=== PATIENT | male | born 1990 | race Caucasian/White ===

== ENCOUNTER 2019-04-29 06:11 | Inpatient (IN) | payer OTHER ==
[~2019-04-29] VITALS: Ht 177.8 cm; Wt 66.2 kg
[2019-04-29] VITALS (17 sets, daily range): BP systolic 107–147; BP diastolic 61–101
[~2019-04-29 06:11] MED LIST: AZITHROMYCIN 2250 MG PO; BACTRIM DS TAB1 EACH PO; CLEOCIN HCL150 MG PO; CLINDAMYCIN HC150 MG PO; FIORICET 50-321 EACH PO; HYDROCODONE-AP1 EAC6 PO; NAPROSYN250 MG PO; NOHOMEMEDICATIONS; NORCO 5-325 TA1 EACH PO; PROMETHAZINE-D120 ML PO; ULTRAM 50MG TAB50 MG PO; ZOFRAN4 MG PO
[2019-04-29] MEDS ORDERED: NOVOLIN R100 UNIT/3 SUBQ (06:21)
[2019-04-29 06:30] LABS: URINE BILIRUBIN NEGATIVE (Negative); URINE BLOOD TRACE (Negative); URINE CLARITY CLEAR; URINE COLOR YELLOW; URINE GLUCOSE-RANDOM 2+ (Negative); URINE KETONES 3+ (Negative); URINE LEUKOCYTES-REFLEX NEGATIVE (Negative); URINE NITRITE-REFLEX NEGATIVE (Negative); URINE PROTEIN TRACE (Negative); URINE SPECIFIC GRAVITY 1.025 (1.005-1.030); URINE UROBILINOGEN 0.2 E.U./dl (0.2-1.0)
[2019-04-29 06:41] LABS: HEMATOCRIT 45.9 % (42.0-52.0); HEMOGLOBIN 13.6 gm/dL (14.0-18.0); MCH 22.9 pg (26.0-34.0); MCHC 29.7 g/dL (28.0-37.0); MPV 8.6 fl. (7.2-11.1); NUCLEATED RBCS 0 /100WBC; PLATELET COUNT* 527 thou/uL (150-400); RBC 5.95 mil/uL (4.50-6.00); RDW-CV 19.8 % (10.5-14.5); WBC 31.2 thou/uL (4.0-11.0)
[2019-04-29 07:03] LABS: BE -27.4 mmol/L (-2 to +3)
[2019-04-29 07:08] LABS: BUN 17 mg/dL (7-18); CALCIUM 9.7 mg/dL (8.5-10.1); CHLORIDE 94 mmol/L (98-107); CREATININE 1.3 mg/dL (0.6-1.3); SODIUM 131 mmol/L (136-145)
[2019-04-29 07:09] LABS: ALBUMIN 4.4 g/dL (3.4-5.0); ALKALINE PHOSPHATASE 168 U/L (46-116); LIPASE 1909 U/L (73-393); SGOT 38 U/L (15-37); SGPT 76 U/L (30-65); TOTAL BILIRUBIN 0.5 mg/dL (<0.1-1.0); TOTAL PROTEIN 8.4 g/dL (6.4-8.2)
[2019-04-29 07:10] LABS: PCO2 < 17.0 mmHg (35.0-45.0); PO2 137.4 mmHg (75.0-100.0); pH 6.981 (7.340-7.450)
[2019-04-29 07:11] LABS: ANION GAP 32 mmol/L (7-16)
[2019-04-29 07:13] LABS: ABSOLUTE LYMPHOCYTES 3.7 thou/uL (0.8-5.3); ABSOLUTE MONOCYTES 1.6 thou/uL (0.0-1.2); ABSOLUTE NEUTROPHILS 25.9 thou/uL (1.6-8.1); PLATELET ESTIMATE INCREASED
[2019-04-29 07:14] LABS: CO2 < 5 mmol/L (21-32); GLUCOSE 655 mg/dL (70-99); HYPOCHROMASIA 1+; POLYCHROMASIA 1+; POTASSIUM 6.3 mmol/L (3.5-5.1)
[2019-04-29 07:15] LABS: ANISOCYTOSIS 1+; MICROCYTES Occasional; POIKILOCYTOSIS 1+
--- NOTE | 2019-04-29 11:32 | EKG ---
[place] [address] ELECTROCARDIOGRAM REPORT Name: GEORGES PEREZ Room: [address] ADM IN M.R.#: [id number] Admission: 04/29/19 Attend Phys: Angelica Morales Discharge: Date of : 86 Report #: [id number] THIS REPORT FOR: //name// [facility] ED Test Date: 2019-04-29 Test Time: 06:43:16 Pat Name: GEORGES PEREZ Department: Room: [facility] Gender: M Freight Handler: : 1990 Requested By: Kena Reinoso Order Number: [id number] MD: Nathanael Lynne Measurements Intervals [place] Rate: 116 P: 73 [place]: 138 QRS: 75 QRSD: 89 T: 44 QT: 332 QTc: 462 Interpretive Statements Sinus tachycardia Biatrial enlargement Compared to ECG 09/20/2013 17:48:56 Atrial abnormality now present Sinus bradycardia no longer present Electronically Signed On 04-29-2019 11:31:54 CDT by Nathanael Lynne [email or web address] <ELECTRONICALLY SIGNED> By: Nathanael Lynne MD, [facility] 04/29/19 1131 [phone] Nathanael Lynne MD, [facility] /EPI
[2019-04-29 11:49] LABS: CALCIUM 8.3 mg/dL (8.5-10.1)
[2019-04-29 11:52] LABS: ALBUMIN 3.6 g/dL (3.4-5.0); MAGNESIUM 2.3 mg/dL (1.8-2.4)
[2019-04-29 11:53] LABS: POTASSIUM 5.1 mmol/L (3.5-5.1)
[2019-04-29 12:53] LABS: CHOLESTEROL 293 mg/dL (<200); HDL CHOLESTEROL 33 mg/dL (>40); TC:HDL 8.9 Ratio (Not establshd); TRIGLYCERIDE 698 mg/dL (<150); VLDL 140 mg/dL (<40)
[2019-04-29 12:56] LABS: LDL CHOLESTEROL > 400 mg/dL (<100); SERUM ASSESSMENT Clear
[2019-04-29 12:58] LABS: BE -17.4 mmol/L (-2 to +3); PCO2 21.4 mmHg (35.0-45.0); PO2 97.3 mmHg (75.0-100.0)
[2019-04-29 13:01] LABS: pH 7.213 (7.340-7.450)
[2019-04-29 16:06] LABS: ALBUMIN 3.4 g/dL (3.4-5.0); CALCIUM 8.5 mg/dL (8.5-10.1); PHOSPHORUS* 2.9 mg/dL (2.5-4.9); POTASSIUM 4.3 mmol/L (3.5-5.1)
--- NOTE | 2019-04-29 19:29 | NUR ---
ASSESSMENTS CHARTED. PATIENT ON UNIT AT 0955 FROM ED. CURRENTLY ON DKA PROTOCOL. FLUIDS INFUSING D5W AT 150 ML/HR, INSULIN TITRATED TO 1 UNIT/HR. POC GLUCOSE Q1H PER PROTOCOL. PATIENT HAS C/O PAIN IN ABDOMEN SINCE ADMISSION. PROVIDERS AWARE OF ISSUE. PATIENT HAS RECEIVED FENTANYL PUSHES Q2H FOR PAIN. CASE MANAGEMENT CONSULTED FOR DIABETIC EDUATION AND RECURRENT NONCOMPLIANCE WITH DIABETIC TREATMENT OUTSIDE OF THE HOSPITAL. FAMILY AT BEDSIDE THROUGHOUT SHIFT. WCTM.
[2019-04-29 22:38] LABS: CALCIUM 8.6 mg/dL (8.5-10.1); MAGNESIUM 1.8 mg/dL (1.8-2.4); POTASSIUM 3.6 mmol/L (3.5-5.1)
[2019-04-30] VITALS (23 sets, daily range): BP systolic 100–125; BP diastolic 48–94
[2019-04-30 04:36] LABS: CALCIUM 8.6 mg/dL (8.5-10.1); CREATININE 0.9 mg/dL (0.6-1.3); MAGNESIUM 1.7 mg/dL (1.8-2.4); POTASSIUM 3.4 mmol/L (3.5-5.1)
--- NOTE | 2019-04-30 06:37 | NUR ---
VITALS STABLE, AFEBRILE. ON 3 UNITS/HR INSULING GTT. COMPLAINS OF ABDOMINAL PAIN. NO URINE OUTPUT, BM THIS PM. POTASSIUM BEING REPLACED PER PROTOCOL. OTHERWISE UNEVENTFUL NIGHT. CALL LIGHT WITHIN REACH.
[2019-04-30 09:55] LABS: BE -6.6 mmol/L (-2 to +3); PCO2 31.9 mmHg (35.0-45.0); PO2 90.9 mmHg (75.0-100.0); pH 7.364 (7.340-7.450)
[2019-04-30 10:08] LABS: CALCIUM 8.4 mg/dL (8.5-10.1); CREATININE 0.9 mg/dL (0.6-1.3); MAGNESIUM 1.7 mg/dL (1.8-2.4); POTASSIUM 3.8 mmol/L (3.5-5.1)
--- NOTE | 2019-04-30 13:51 | NUR ---
MET WITH PATIENT IN ROOM; PURCHASES INSULIN OTC AT [facility] & UTILIZES A SLIDING SCALE; NO PCP; EDUCATED ON [facility]OURCE AND ALSO [facility] IF UNABLE TO QUALIFY FOR OTHER RESOURCES THRU [facility]. STATES HE KNOWS [facility]. DENIES OTHER NEEDS; ALL QUESTIONS ANSWERED.
[2019-04-30 17:24] LABS: CALCIUM 8.7 mg/dL (8.5-10.1); CREATININE 0.9 mg/dL (0.6-1.3); MAGNESIUM 1.8 mg/dL (1.8-2.4); POTASSIUM 4.2 mmol/L (3.5-5.1)
--- NOTE | 2019-04-30 18:58 | NUR ---
PATIENT PROGRESSING TOWARD GOALS. ASSESSMENTS CHARTED. PATIENT PROGRESSED TOWARD CARB CONTROL DIET OFF OF NPO. SLIDING SCALE INSULIN ADDED. GLUCOSE STABILIZING. WCTM
[2019-04-30 22:09] LABS: CALCIUM 8.4 mg/dL (8.5-10.1); MAGNESIUM 1.6 mg/dL (1.8-2.4); POTASSIUM 3.6 mmol/L (3.5-5.1)
[2019-05-01] VITALS (13 sets, daily range): BP systolic 82–111; BP diastolic 41–92
[2019-05-01 05:45] LABS: CALCIUM 8.1 mg/dL (8.5-10.1); CREATININE 0.6 mg/dL (0.6-1.3); MAGNESIUM 1.8 mg/dL (1.8-2.4); POTASSIUM 3.6 mmol/L (3.5-5.1)
--- NOTE | 2019-05-01 07:20 | NUR ---
Pt medicated prn for c/o abd pain; see MAR. VSS, though BP 80s-100s/50s-60s. BG ranged from 234 to 107 over the course of the shift. Insulin gtt remains at 0.5 units/hour. Will continue to monitor.
--- NOTE | 2019-05-01 12:31 | NUR ---
MET WITH PT AND SPOUSE THIS AM. ADVISED [facility] ATTEMPTING TO REACH & REPORT HE HUNG UP YESTERDAY. PT STATES LINE WENT WHEN HE ANSWERED BUT HE IS WANTING TO TALK WITH THEM. SENT NOTIFICATION TO [employer] TO ATTEMPT CONTACT WITH PT TODAY PER PATIENT REQUEST. PATIENT HAS NO OTHER QUESTIONS AT THIS TIME. PLAN: CONTINUE TO WORK WITH PATIENT/FAMILY FOR COMMUNITY RESOURCE SUPPORT.
[2019-05-01 13:02] LABS: ABSOLUTE BASOPHILS 0.1 thou/uL (0.0-0.2); ABSOLUTE EOSINOPHILS 0.2 thou/uL (0.0-0.7); ABSOLUTE LYMPHOCYTES 1.5 thou/uL (0.8-5.3); ABSOLUTE MONOCYTES 0.5 thou/uL (0.0-1.2); ABSOLUTE NEUTROPHILS 4.2 thou/uL (1.6-8.1); BASOPHILS 0.8 %; EOSINOPHILS 3.3 %; HEMATOCRIT 32.8 % (42.0-52.0); HEMOGLOBIN 10.8 gm/dL (14.0-18.0); LYMPHOCYTES 23.3 %; MCH 23.7 pg (26.0-34.0); MCHC 32.9 g/dL (28.0-37.0); MCV 72.1 fL (80.0-100.0); MONOCYTES 7.9 %; MPV 7.6 fl. (7.2-11.1); NUCLEATED RBCS 0 /100WBC; PLATELET COUNT* 233 thou/uL (150-400); POLYS 64.7 %; RBC 4.55 mil/uL (4.50-6.00); RDW-CV 18.3 % (10.5-14.5); WBC 6.5 thou/uL (4.0-11.0)
[2019-05-01 13:23] LABS: CHOLESTEROL 154 mg/dL (<200); HDL CHOLESTEROL 30 mg/dL (>40); LDL CHOLESTEROL 71 mg/dL (<100); TC:HDL 5.1 Ratio (Not establshd); TRIGLYCERIDE 268 mg/dL (<150); VLDL 54 mg/dL (<40)
[2019-05-01 13:32] LABS: LIPASE 7262 U/L (73-393); SERUM ASSESSMENT Clear
--- NOTE | 2019-05-01 17:46 | NUR ---
THIS DISPLAY MECHANIC ASSUMED CARE OF PT AFTER RECEIVING SHIFT REPORT AT 0700. PT PROGRESSED TOWARDS GOALS TODAY AND WAS DOWNGRADED TO MED SURG ROOM 318 INSULIN DRIP D/C ON MODERATE SLIDING SCALE ACHS FAMILY IN ROOM FOR A FEW HOURS STILL C/O OF ABD PAIN DO TO PANCREATITIS IS BEING MANAGED BY PAIN MEDICINE.
--- NOTE | 2019-05-01 18:32 | NUR ---
PT TRANFERRED TO ROOM 318 AT 1745. PT IS ALERT AND ORIENTED X4. PT IN SHOWER AT THIS TIME. WILL CONTINUE PLAN OF CARE
--- NOTE | 2019-05-02 06:29 | NUR ---
PT ALERT AND ORIENTED. VSS ON RA. NO INSULIN GIVEN THIS SHIFT BG WAS 70. PAIN MED GIVEN THIS SHIFT. MEDS GIVEN PER EMAR. PT SLEPT MOST OF SHIFT. UP AD MANOJ. CALL LIGHT WITHIN REACH. HOURLY ROUNDINGS MADE. WILL CONTINUE TO MONITOR.
[2019-05-02 09:09] LABS: ABSOLUTE BASOPHILS 0.1 thou/uL (0.0-0.2); ABSOLUTE EOSINOPHILS 0.2 thou/uL (0.0-0.7); ABSOLUTE LYMPHOCYTES 1.3 thou/uL (0.8-5.3); ABSOLUTE MONOCYTES 0.4 thou/uL (0.0-1.2); ABSOLUTE NEUTROPHILS 3.9 thou/uL (1.6-8.1); BASOPHILS 1.4 %; EOSINOPHILS 3.2 %; HEMATOCRIT 37.7 % (42.0-52.0); HEMOGLOBIN 12.2 gm/dL (14.0-18.0); LYMPHOCYTES 21.9 %; MCH 23.2 pg (26.0-34.0); MCHC 32.3 g/dL (28.0-37.0); MCV 71.9 fL (80.0-100.0); MONOCYTES 6.4 %; MPV 7.6 fl. (7.2-11.1); NUCLEATED RBCS 0 /100WBC; PLATELET COUNT* 282 thou/uL (150-400); POLYS 67.1 %; RBC 5.25 mil/uL (4.50-6.00); RDW-CV 18.1 % (10.5-14.5); WBC 5.9 thou/uL (4.0-11.0)
[2019-05-02 09:35] LABS: ALBUMIN 3.4 g/dL (3.4-5.0); CALCIUM 9.2 mg/dL (8.5-10.1); CREATININE 0.7 mg/dL (0.6-1.3); POTASSIUM 4.7 mmol/L (3.5-5.1); TOTAL BILIRUBIN 1.3 mg/dL (<0.1-1.0); TOTAL PROTEIN 6.8 g/dL (6.4-8.2)
[2019-05-02 10:15] LABS: ANISOCYTOSIS 1+; PLATELET ESTIMATE ADEQUATE
[2019-05-02 10:16] LABS: TARGET CELLS 1+
[2019-05-02 10:17] LABS: MICROCYTES 2+
[2019-05-02 15:00] VITALS: BP 112/64
--- NOTE | 2019-05-02 17:28 | NUR ---
PT A&OX4 VSS. NO C/O PAIN AT THIS TIME. PT UP AD MANOJ, GAIT STEADY. IV TO LFA DC'D THIS SHIFT D/T BEING DISLODGED. NO REDNESS/SWELLING NOTED TO SITE. RFA REMAINS PATENT. NO COMPLAINTS/CONCERNS AT THIS TIME. PT RESTS IN ROOM, CALL LIGHT IN REACH.
[2019-05-02 20:44] VITALS: BP 102/61
[2019-05-03 05:07] LABS: MCH 22.8 pg (26.0-34.0); MCHC 31.8 g/dL (28.0-37.0); MCV 71.6 fL (80.0-100.0); RBC 4.47 mil/uL (4.50-6.00); RDW-CV 17.9 % (10.5-14.5); WBC 5.8 thou/uL (4.0-11.0)
[2019-05-03 05:17] LABS: HEMOGLOBIN 10.2 gm/dL (14.0-18.0)
[2019-05-03 05:38] LABS: ALBUMIN 2.6 g/dL (3.4-5.0); CALCIUM 8.2 mg/dL (8.5-10.1); CREATININE 0.6 mg/dL (0.6-1.3); MAGNESIUM 1.9 mg/dL (1.8-2.4); POTASSIUM 3.9 mmol/L (3.5-5.1); TOTAL BILIRUBIN 0.5 mg/dL (<0.1-1.0); TOTAL PROTEIN 5.3 g/dL (6.4-8.2)
--- NOTE | 2019-05-03 06:26 | NUR ---
PATIENT HAS SLEPT WELL THROUGOUT THE NIGHT. VSS ON RA. BLOOD SUGAR CONTROLLED AT THIS TIME. MEDICATIONS GIVEN ORDERED AND CHARTED. AT BEDSIDE. PATIENT IS UP AD-MANOJ AND STEADY. ASSESSMENT CHARTED. IV IN LEFT FOREARM-SL. IV IN RIGHT FOREARM-SL. PATIENT INSTRUCTED TO USE CALL LIGHT WHEN NEEDING ASSISTANCE. HOURLY ROUNDS MADE. WILL CONTINUE WITH PLAN OF CARE AND NURSING TO MONITOR.
[2019-05-03 16:00] VITALS: BP 113/64
--- NOTE | 2019-05-03 19:00 | NUR ---
PATIENT PLEASANT AND COOPERATIVE W/ ASSESS AND CARES THRU SHIFT. PATIENT DENIES PAIN. UP INDEP IN RM AND HALLS W/ STEADY GAIT. IV FLUIDS INFUSING W/O DIFF. ALERT AND ORIENTED. ATE 100% OF MEALS THIS SHIFT. SEE MAR. UP TO SHOWER INDEP THIS AM. CURRENTLY RESTING IN BED, DENIES NURSING NEEDS AT THIS TIME. CALL LIGHT IN REACH. HRLY ROUNDS DONE. ~TJRN
[2019-05-03 20:20] VITALS: BP 106/73
--- NOTE | 2019-05-04 05:30 | NUR ---
PT SLEPT OFF AND ON OVERNIGHT. HS ACCUCHECK 119, INSULINS GIVEN ORDERED WITH SNACKS. UP AD MANOJ IN ROOM TO VOID. RFA IVF INFUSING PER PUMP. LFA SL IV. TOLERATING CLEARS WITHOUT N/V. AM LABS DRAWN, LIPASE IMPROVED. HYDROCODONE AND ZOFRAN GIVEN X1 FOR CO ABD AND BACK PAIN WITH GOOD RESULT. ABLE TO USE CALL LITE AND MAKE NEEDS KNOWN. CM TO CONSULT WITH PT ON OBTAINING HOME INSULIN. AOX4, ABLE TO USE CALL LITE AND MAKE NEEDS KNOWN.
[2019-05-04 16:00] VITALS: BP 130/87
--- NOTE | 2019-05-04 18:49 | NUR ---
ASSESSMENT COMPLETE. PT ALERT AND ORIENTED X4. DENIES PAIN. UP AD MANOJ. TOLERATING DIET. POSSIBLE DC PENDING LIPASE LEVEL IN AM. SEE ASSESSMENT AND VITALS FOR OTHER DETAILS. CALL LIGHT WITHIN REACH, WILL CONTINUE PLAN OF CARE
[2019-05-04 20:47] VITALS: BP 129/78
[2019-05-05 05:01] LABS: HEMATOCRIT 33.7 % (42.0-52.0); HEMOGLOBIN 10.7 gm/dL (14.0-18.0); MCHC 31.7 g/dL (28.0-37.0); MCV 72.4 fL (80.0-100.0); MPV 8.2 fl. (7.2-11.1); RBC 4.65 mil/uL (4.50-6.00); RDW-CV 17.9 % (10.5-14.5); WBC 5.7 thou/uL (4.0-11.0)
--- NOTE | 2019-05-05 05:02 | NUR ---
PT SLEPT ON AND OFF OVERNIGHT. UP AD MANOJ IN ROOM, SHOWERED INDEP AT HS. RFA IVF INFUSING PER PUMP ORDERED. RECEIVED PO PAIN MEDX1 FOR CO BACK PAIN, ZOFRAN WITH GOOD RESULTS. AM LABS DRAWN. TOLERATING SOFT DIET WITHOUT EMESIS. HS ACCUCHECK 89, NO INSULIN GIVEN. HOPEFUL FOR DISCHARGE HOME TODAY. ABLE TO USE CALL LITE AND MAKE NEEDS KNOWN.
[2019-05-05 05:25] LABS: ALBUMIN 2.9 g/dL (3.4-5.0); CALCIUM 8.4 mg/dL (8.5-10.1); CREATININE 0.7 mg/dL (0.6-1.3); MAGNESIUM 1.9 mg/dL (1.8-2.4); POTASSIUM 4.3 mmol/L (3.5-5.1); TOTAL BILIRUBIN 0.5 mg/dL (<0.1-1.0); TOTAL PROTEIN 5.7 g/dL (6.4-8.2)
[2019-05-05] MEDS ORDERED: FENOFIBRATE160 MG PO (09:45)
[2019-05-05] MEDS ORDERED: HUMALOG100 UNIT/1 SUBQ (09:45)
[2019-05-05] MEDS ORDERED: HUMULIN N100 UNIT/1 SUBQ (09:45)
[2019-05-05] MEDS ORDERED: NIACIN 500 MG500 M1 PO (09:45)
[2019-05-05 10:03] VITALS: BP 129/78
--- NOTE | 2019-05-05 10:57 | NUR ---
SW met with pt to discuss dc plan for today and ensure pt felt confident in managing diabetic supplies and resources available. Pt expressed confidence now and knowledge and importance of follow up care.
[2019-05-05 11:08] VITALS: BP 129/78
== END 2019-05-05 11:05 | disposition home or self-care (01) | DRG 871 ==
LOC: M.ERS 06:11 → M.ICU 07:41 → M.TBA-ER 07:41 → M.ICU 09:37 → M.3W 05-01 17:37
PROVIDERS: Emergency Medicine; Internal Medicine; ADMIT Internal Medicine
DX: A41.9 Sepsis, unspecified organism (principal); E10.10 Type 1 diabetes mellitus with ketoacidosis without coma; K85.90 Acute pancreatitis without necrosis or infection, unspecified; R65.20 Severe sepsis without septic shock; F17.210 Nicotine dependence, cigarettes, uncomplicated; E78.1 Pure hyperglyceridemia; E78.00 Pure hypercholesterolemia, unspecified; D64.9 Anemia, unspecified; Z79.4 Long term (current) use of insulin; Z88.0 Allergy status to penicillin; Z91.018 Allergy to other foods; Z91.14 Patient's other noncompliance with medication regimen

== ENCOUNTER 2020-03-17 11:12 | Emergency (ER) | payer OTHER ==
[~2020-03-17] VITALS: Ht 175.3 cm; Wt 72.6 kg
[~2020-03-17 11:12] MED LIST changes: +FENOFIBRATE160 MG PO; +HUMALOG100 UNIT/1 SUBQ; +HUMULIN N100 UNIT/1 SUBQ; +NIACIN 500 MG500 M1 PO; +NOVOLIN R100 UNIT/3 SUBQ
[2020-03-17] MEDS ORDERED: PERIDEX 0.12%473 M1 SWISH&SPIT (12:23)
[2020-03-17] MEDS ORDERED: IBUPROFEN 800800 MG PO (12:23)
[2020-03-17] MEDS ORDERED: CLEOCIN HCL150 MG PO (12:23)
[2020-03-17 12:30] VITALS: BP 130/88
== END 2020-03-17 12:33 | disposition home or self-care (01) ==
LOC: M.ERS 11:12
DX: L03.211 Cellulitis of face (principal); K04.7 Periapical abscess without sinus; H02.842 Edema of right lower eyelid; E10.9 Type 1 diabetes mellitus without complications; Z88.0 Allergy status to penicillin; Z91.018 Allergy to other foods

== ENCOUNTER 2021-03-14 19:18 | Observation (INO) | payer OTHER ==
[~2021-03-14] VITALS: Ht 175.3 cm; Wt 63.5 kg
--- NOTE | ~2021-03-14 | H ---
[address] [address] HISTORY AND PHYSICAL Name: GEORGES PEREZ Room: [address] Rachel Karimi#: [id number] Admission: 03/14/21 Attend Phys: Halina Kingston Discharge: 03/15/21 Date of : 86 Report #: [id number] THIS REPORT FOR: cc: FAM - No family physician/PCP FAM - No family physician/PCP [facility],Medical Records Staff ~ Patient was here less than 24 hour please refer to the final summation note. Patient left Against Medical Advice. By: 0702Medical Records Staff GENA /ARAMIS
[~2021-03-14 19:18] MED LIST changes: +IBUPROFEN 800800 MG PO; +PERIDEX 0.12%473 M1 SWISH&SPIT
[2021-03-14 19:27] VITALS: BP 111/89
[2021-03-14 20:03] LABS: BE 1.9 mmol/L (-2 to +3); PCO2 VENOUS 44.3 mmHg (41.0-51.0); PO2 VENOUS 109.5 mmHg (35.0-45.0)
[2021-03-14 20:07] LABS: ABSOLUTE BASOPHILS 0.1 thou/uL (0.0-0.2); ABSOLUTE EOSINOPHILS 0.2 thou/uL (0.0-0.7); ABSOLUTE LYMPHOCYTES 2.3 thou/uL (0.8-5.3); ABSOLUTE MONOCYTES 0.7 thou/uL (0.0-1.2); ABSOLUTE NEUTROPHILS 3.9 thou/uL (1.6-8.1); BASOPHILS 0.9 %; EOSINOPHILS 2.1 %; HEMATOCRIT 38.6 % (42.0-52.0); LYMPHOCYTES 32.8 %; MCH 22.1 pg (26.0-34.0); MCV 71.4 fL (80.0-100.0); MONOCYTES 9.3 %; MPV 8.1 fl. (7.2-11.1); NUCLEATED RBCS 0 /100WBC; PLATELET COUNT* 295 thou/uL (150-400); POLYS 54.9 %; RBC 5.41 mil/uL (4.50-6.00); RDW-CV 15.1 % (10.5-14.5); WBC 7.1 thou/uL (4.0-11.0)
[2021-03-14 20:08] LABS: URINE BILIRUBIN NEGATIVE (Negative); URINE BLOOD NEGATIVE (Negative); URINE CLARITY CLEAR; URINE COLOR YELLOW; URINE GLUCOSE-RANDOM 3+ (Negative); URINE KETONES NEGATIVE (Negative); URINE LEUKOCYTES-REFLEX NEGATIVE (Negative); URINE NITRITE-REFLEX NEGATIVE (Negative); URINE PROTEIN NEGATIVE (Negative); URINE UROBILINOGEN 0.2 E.U./dl (0.2-1.0)
[2021-03-14 20:16] LABS: CALCIUM 7.8 mg/dL (8.5-10.1); POTASSIUM 4.2 mmol/L (3.5-5.1)
[2021-03-14 20:19] LABS: ALBUMIN 3.1 g/dL (3.4-5.0); TOTAL BILIRUBIN 0.4 mg/dL (<0.1-1.0); TOTAL PROTEIN 6.1 g/dL (6.4-8.2)
[2021-03-14 21:21] LABS: ANISOCYTOSIS 1+
[2021-03-14 21:22] LABS: PLATELET ESTIMATE ADEQUATE; POLYCHROMASIA Occasional
[2021-03-14 21:23] LABS: HYPOCHROMASIA Occasional; MICROCYTES 2+
[2021-03-14 21:24] LABS: LARGE PLATELETS OCCASIONAL
[2021-03-14 21:37] LABS: AMP/METHAMP Negative (Negative); BARBITURATES Negative (Negative); BENZODIAZEPINES Negative (Negative); COCAINE Negative (Negative); METHADONE Negative (Negative); OPIATES Negative (Negative); PCP Negative (Negative); THC Negative (Negative)
[2021-03-15 02:00] VITALS: BP 111/81
[2021-03-15 06:00] VITALS: BP 121/82
[2021-03-15 08:25] VITALS: BP 108/87
--- NOTE | 2021-03-15 09:43 | EKG ---
[place] [address] ELECTROCARDIOGRAM REPORT Name: CHRISGEORGES Nabila Room: [address]#: [id number] Admission: 03/14/21 Attend Phys: Faustino Keller Discharge: 03/15/21 Date of : 86 Date of Service: 03/14/211958 Report #: [id number] THIS REPORT FOR: //name// [facility] ED Test Date: 2021-03-14 Test Time: 19:59:19 Pat Name: GEORGES PEREZ Department: Room: [facility] Gender: M Learning Coach: CHRISTIE : 1990 Requested By: Kena Reinoso Order Number: [id number] MD: Nathanael Lynne Measurements Intervals [place] Rate: 66 P: 52 [place]: 154 QRS: 51 QRSD: 84 T: 56 QT: 412 QTc: 432 Interpretive Statements Sinus rhythm Probable left atrial enlargement Baseline wander in lead(s) I,aVL,V2,V3,V4,V5 Compared to ECG 04/29/2019 06:43:16 Sinus tachycardia no longer present Electronically Signed On 03-15-2021 9:42:54 CDT by Nathanael Lynne [email or web address] <ELECTRONICALLY SIGNED> By: Nathanael Lynne MD, [facility] 03/15/2142 58 58 Nathanael Lynne MD, [facility] /EPI
== END 2021-03-15 08:30 | disposition left against medical advice (07) ==
LOC: M.ERS 19:18 → M.TBA-ER 21:58
PROVIDERS: Emergency Medicine; ADMIT Internal Medicine; ATTEND Internal Medicine
DX: R73.9 Hyperglycemia, unspecified (principal); Z20.822 Contact with and (suspected) exposure to COVID-19; F17.210 Nicotine dependence, cigarettes, uncomplicated; Z53.29 Procedure and treatment not carried out because of patient's decision for other reasons; Z79.899 Other long term (current) drug therapy